=== PATIENT | male | born 1960 | race Caucasian/White ===

== ENCOUNTER 2017-03-05 10:15 | Emergency (ER) | payer BC ==
[2017-03-05 10:19] VITALS: BP 146/70
== END 2017-03-05 10:23 | disposition left against medical advice (07) ==
LOC: ED 10:15
DX: R09.89 Other specified symptoms and signs involving the circulatory and respiratory systems (principal); Z53.21 Procedure and treatment not carried out due to patient leaving prior to being seen by health care provider

== ENCOUNTER 2017-07-18 16:46 | Emergency (ER) | payer BC ==
[2017-07-18 17:01] VITALS: BP 117/76
--- NOTE | 2017-07-18 17:22 | UC ---
Skin Complaint HPI - HPI Summary HPI Summary: patient had 2 ticks attached to him for at least 24 hours---unsure of the exact time of attachment - History of Current Complaint Chief Complaint: UCGeneralIllness Time Seen by Provider: 07/18/17 17:22 Stated Complaint: TICK BITES Hx Obtained From: Patient - O Onset/Duration: Sudden Onset, Lasting Hours - + hours has removed earlier today26 Current Severity: None Pain Intensity: 0 Pain Scale Used: 0-10 Numeric Location: Discrete Aggravating Factor(s): Nothing Alleviating Factor(s): Nothing Associated Signs & Symptoms: Positive: Negative Related History: Possible Reaction to: Insect - Allergy/Home Medications Allergies/Adverse Reactions: Allergies Allergy/AdvReac Type Severity Reaction Status Date / Time No Known Allergies Allergy Verified 07/18/17 17:01 Home Medications: Home Medications Omeprazole 1 cap PO DAILY 07/18/17 [History Confirmed 07/18/17] Review of Systems Constitutional: Negative Skin: Negative, Other - 2 small ticks removed by patient intact prior to arrival 1 on abdomen and one on penis Eyes: Negative ENT: Negative Respiratory: Negative Cardiovascular: Negative Gastrointestinal: Negative Genitourinary: Negative Motor: Negative Neurovascular: Negative Musculoskeletal: Negative Neurological: Negative Psychological: Negative Is Patient Immunocompromised?: No All Other Systems Reviewed And Are Negative: Yes PMH/Surg Hx/FS Hx/Imm Hx Previously Healthy: Yes - Surgical History Surgical History: None - Family History Known Family History: Negative: Cardiac Disease, Hypertension, Diabetes - Social History Occupation: Employed Full-time Lives: With Family Alcohol Use: None Substance Use Type: None Smoking Status (MU): Never Smoked Tobacco Physical Exam Triage Information Reviewed: Yes Appearance: Well-Appearing, No Pain Distress, Well-Nourished Vital Signs: Initial Vital Signs Temp 98.4 F 07/18/17 16:57 Pulse 83 07/18/17 16:57 Resp 14 07/18/17 16:57 BP 117/76 07/18/17 16:57 Pulse Ox 98 07/18/17 16:57 Vital Signs Reviewed: Yes Eye Exam: Normal Eyes: Positive: Conjunctiva Clear ENT Exam: Normal ENT: Positive: Normal ENT inspection, Hearing grossly normal. Negative: Trismus , Muffled voice, Hoarse voice, Dental tenderness, Sinus tenderness Dental Exam: Normal Neck exam: Normal Neck: Positive: Supple, Nontender, No Lymphadenopathy Respiratory Exam: Normal Respiratory: Positive: Chest non-tender, No respiratory distress, No accessory muscle use Cardiovascular Exam: Normal Cardiovascular: Positive: RRR, Pulses Normal, Brisk Capillary Refill Musculoskeletal Exam: Normal Neurological Exam: Normal Neurological: Positive: Alert, Muscle Tone Normal Psychological Exam: Normal Skin Exam: Normal Course/Dx - Course Course Of Treatment: Soap and water wash, 200 mg doxycycline 1 now follow with PCP for any signs or symptoms of Lyme. Education regarding Lyme infection provided - Diagnoses Provider Diagnoses: tick exposure with Lyme PEP Discharge - Sign-Out/Discharge Documenting (check all that apply): Discharge/Admit/Transfer - Discharge Plan Condition: Stable Disposition: HOME Patient Education Materials: Tick Bite (ED) Referrals: Aditya Donis MD [Primary Care Provider] - If Needed - Billing Disposition and Condition Condition: STABLE Disposition: HOME
[2017-07-18] MEDS ORDERED: DOXYcycline CAP(*) 100 MG PO ONE (17:33)
== END 2017-07-18 17:49 | disposition home or self-care (01) ==
LOC: UCEAST 16:46
DX: S30.861A Insect bite (nonvenomous) of abdominal wall, initial encounter (principal); S30.862A Insect bite (nonvenomous) of penis, initial encounter; W57.XXXA Bitten or stung by nonvenomous insect and other nonvenomous arthropods, initial encounter; Y93.9 Activity, unspecified; Y92.9 Unspecified place or not applicable
CPT/HCPCS: 99212; A9270-GY; G0463

== ENCOUNTER → 2018-02-09 16:59 | Emergency (ER) | payer BC ==
[2018-02-09 17:12] VITALS: BP 133/85
== END | disposition home or self-care (01) ==
LOC: ED 16:59
DX: T17.208A Unspecified foreign body in pharynx causing other injury, initial encounter (principal); X58.XXXA Exposure to other specified factors, initial encounter; Y92.9 Unspecified place or not applicable; Z53.21 Procedure and treatment not carried out due to patient leaving prior to being seen by health care provider
CPT/HCPCS: 99281

== ENCOUNTER 2018-08-06 18:26 | Emergency (ER) | payer BC ==
[2018-08-06 18:34] VITALS: BP 132/86
[2018-08-06] MEDS ORDERED: NS 0.9% 1000 ML** 1,000 ML IV ONE (18:44)
[2018-08-06] MEDS ORDERED: Ondansetron INJ* 2 MG/ML VIAL IV ONE (18:44)
--- NOTE | 2018-08-06 18:49 | ED ---
Throat Pain/Nasal Congestion - HPI Summary HPI Summary: Pt is a 57 y/o M presenting to the ED with food stuck in his esophagus. He states this has happened before, and his physicians have been unable to figure out why it happens. He was eating a turkey sandwich when he realized some got stuck in his throat. He currently c/o difficulty swallowing. He denies SOB or pain with swallowing. He denies hx of DM or HTN. He occasionally drinks alcohol, but does not use drugs. NKDA. - History of Current Complaint Chief Complaint: EDForeignBodyEsophag Time Seen by Provider: 08/06/18 18:38 Hx Obtained From: Patient Onset/Duration: Sudden Onset, Lasting Hours, Still Present Severity: Moderate Cough: None Related History: Other (Noted In Comments) - hx of getting food stuck in esophagus - Allergies/Home Medications Allergies/Adverse Reactions: Allergies Allergy/AdvReac Type Severity Reaction Status Date / Time No Known Allergies Allergy Verified 07/18/17 17:01 PMH/Surg Hx/FS Hx/Imm Hx Previously Healthy: Yes Endocrine/Hematology History: Denies: Hx Diabetes Cardiovascular History: Denies: Hx Hypertension Musculoskeletal History: Denies: Hx Rheumatoid Arthritis, Hx Osteoporosis Infectious Disease History: No Infectious Disease History: Denies: Traveled Outside the [place] in Last 30 Days - Family History Known Family History: Negative: Cardiac Disease, Hypertension, Diabetes - Social History Alcohol Use: None Hx Substance Use: No Substance Use Type: Reports: None Hx Tobacco Use: No Smoking Status (MU): Never Smoked Tobacco Review of Systems Positive: Other - difficulty swallowing, but no pain with swallowing Negative: Shortness Of Breath All Other Systems Reviewed And Are Negative: Yes Physical Exam - Summary Physical Exam Summary: GENERAL: Patient is a well-developed and nourished M who is lying comfortable in the stretcher. Patient is not in any acute respiratory distress. HEAD AND FACE: Normocephalic EYES: PERRLA, EOMI x 2. EARS: Hearing grossly intact. MOUTH: Oropharynx within normal limits. NECK: Supple, trachea is midline, no adenopathy, no JVD, no carotid bruit. CHEST: Symmetric, no tenderness at palpation LUNGS: Clear to auscultation bilaterally. No wheezing or crackles. CVS: Regular rate and rhythm, S1 and S2 present, no murmurs or gallops appreciated. ABDOMEN: Soft, non-tender. Bowel sounds are normal. No abnormal abdominal pulsations. EXTREMITIES: Full ROM in all major joints, no edema, no cyanosis or clubbing. NEURO: Alert and oriented x 3. No acute neurological deficits. Speech is normal and follows commands. SKIN: Dry and warm Triage Information Reviewed: Yes Vital Signs On Initial Exam: Initial Vitals Temp Pulse Resp BP Pulse Ox 97.1 F 94 16 132/86 96 08/06/18 18:32 08/06/18 18:32 08/06/18 18:32 08/06/18 18:32 08/06/18 18:32 Vital Signs Reviewed: Yes Diagnostics - Vital Signs Vital Signs Temp Pulse Resp BP Pulse Ox 08/06/18 18:32 97.1 F 94 16 132/86 96 - Laboratory Lab Statement: Any lab studies that have been ordered have been reviewed, and results considered in the medical decision making process. Re-Evaluation - Re-Evaluation 1st re-eval Re-Evaluation Time: 19:04 Change: Improved Comment: Pt states he was able to cough up some of the food thaty was stuck in his throat. He was also able to drink some water, and he would like to go home. EENT Course/Dx - Course Course Of Treatment: Pt is a 57 y/o M presenting to the ED with food stuck in his esophagus. He currently c/o difficulty swallowing. He denies SOB or pain with swallowing. He denies hx of DM or HTN. He occasionally drinks alcohol, but does not use drugs. NKDA. The pt's physical exam is normal. I called Dr. Davis at 1845 who will be coming to see the patient. Pt states he was able to vomit some of the food that was stuck in his throat. He was also able to drink two cups of water, and he would like to go home. I called Dr. Davis to let him know the pt's sx resolved and he didn't have to come to see the patient. Pt is hemodynamically stable and safe for discharge. He will be d/c' ed with a dx of food impaction, resolved. - Diagnoses Provider Diagnoses: Esophageal obstruction due to food impaction, Problem resolved Discharge - Sign-Out/Discharge Documenting (check all that apply): Patient Departure Patient Received Moderate/Deep Sedation with Procedure: No - Discharge Plan Condition: Stable Disposition: HOME Referrals: Aditya Donis MD [Primary Care Provider] - Additional Instructions: Please follow up with your primary care physician within the next 1-3 days. Return to the ED with any new or worsening symptoms. - Billing Disposition and Condition Condition: STABLE Disposition: Home - Attestation Statements Document Initiated by Jeison: Yes Documenting Scribe: Aminah Knight Provider For Whom Jeison is Documenting (Include Credential): Shahla Ceja MD. Scribe Attestation: IAminah, scribed for Shahla Ceja MD. on 08/06/18 at 2110. Scribe Documentation Reviewed: Yes Provider Attestation: The documentation as recorded by the Aminah moore accurately reflects the service I personally performed and the decisions made by me, Kavon Ceja MD. Status of Scribowen Document: Viewed Consult Consult: 1844 - I called Dr. Davis who will be coming to see the patient. 1708 - I called Dr. Davis to let him know the pt's issue had resolved and he didn't need to come see the patient.
--- OUTSIDE RECORDS SUMMARY | 2018-08-06 18:59 | XMS REPORT | Continuity of Care Document ---
:1960 External Reference #:[id number] Author Name Aditya Donis M.D. Address [address] [place] [address] Care Team Providers Name Role Phone Aditya Donis M.D. Care Team Information Personal Lines Appraiser Unavailable Payers Date Identification Numbers Payment Provider Subscriber Policy Number: [id number] [employer] [facility] Tim Motley Group Number: [id number] [address] [address] Group Name: KENDELL Rhodes [id number] PayID: [id number] Family History Date Family Member(s) Observation Comments Father Hypercholesterolemia Father Phlebitis unsure details. Took blood thinners. Father Cancer, Lung Dad 18 months ago from lung CA Mother Non Contributory Mother "growth in her throat" not thought to be cancer. First Son Autism First Daughter Neurofibromatosis Siblings 7 First Brother Colon polyps First Sister Graves Disease Second Sister Fibromyalgia Third Sister Arthritis : (age Paternal Grandfather due to DE 60 Years) : (age Paternal Grandmother due to Natural Causes 90 Years) Maternal Grandfather due to Unknown Causes () - in his 90's : (age Maternal Grandmother due to Hip Fracture 95 Years) Maternal Uncles Cancer, Colon Social History Type Date Description Comments Sex Unknown Marital Status Lives With Spouse Lives With Son Lives With Daughter Occupation Works from home. 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 Tobacco Use Start: Unknown Never Smoked Cigarettes ETOH Use Drinks occasionally 1-2 drinks a month. Tobacco Use Start: Unknown Patient has never smoked Exercise Type/Frequency Exercises sporadically golfs 1-2 days a week. Allergies, Adverse Reactions, Alerts Description No Known Drug Allergies Medications Active Medications SIG Qnty Indications Ordering Provider Date Ibuprofen take1 tablet qid 60tabs 840.4 Courtney Diggs, 11/18/2010 600mg Tablets prn pain, take ROPEMAN-C with food History Medications Escitalopram Oxalate 1 po qd 30tabs 300.4 Aditya Donis, 11/27/2011 - 10mg M.DBong 01/28/2017 Tablets Meloxicam one po up to bid 60tabs 724.5 Charlette Camacho 10/25/2011 - 7.5mg Tablets prn joint pain Meng Blanton 01/28/2017 Cyclobenzaprine HCL take 1 tablet by 330tabs 724.5 Charlette Camacho 2011 - 10mg mouth three Meng Blanton 01/28/2017 Tablets times a day if needed muscle spasm or back pain Triamcinolone Acetonide apply to 15gm [facility] RBong 01/29/2007 - affected area Storm, ROPEMAN-C 08/17/2009 0.1% Cream bid Zyrtec 1 PO qd 30units Aditya Donis, 02/12/2006 - 10mg Chewtabs Meng 08/17/2009 Flexeril 1 PO tid 10tabs Aditya Donis 11/06/2004 - 10mg Tablets Aurora.DBong 02/04/2005 Tobradex ii gtts OU qid 6cc 372.00 Charlette Camacho 08/05/2002 - Meng Blanton 12/05/2003 Penicillin VK one bid x 10days 20tabs Courtney 09/08/2001 - 500mg Tablets Meng Rebolledo 12/05/2003 Medications Administered in Office Medication SIG Qnty Indications Ordering Provider Date Injection, Depo-Medrol 40MG Aditya Donis M.D. 11/20/2004 Injection Immunizations CPT Code Status Date Vaccine Lot # [id number] Given 12/06/2003 DT (Adult) Vital Signs Date Vital Result Comment 01/28/2017 10:32am Weight 204.00 lb Weight 92.534 kg BP Systolic 120 mmHg BP Diastolic 70 mmHg Heart Rate 60 /min Body Temperature 96.5 F Respiratory Rate 16 /min O2 % BldC Oximetry 97 % 12/19/2011 11:48am Weight 197.00 lb Weight 89.359 kg BP Systolic 124 mmHg BP Diastolic 82 mmHg Heart Rate 48 /min 11/27/2011 11:43am Weight 196.00 lb Weight 88.906 kg BP Systolic 130 mmHg BP Diastolic 66 mmHg Heart Rate 76 /min 10/25/2011 11:13am Weight 197.00 lb Weight 89.359 kg BP Systolic 104 mmHg BP Diastolic 64 mmHg Heart Rate 76 /min Body Temperature 96.3 F 11/18/2010 9:38am Weight 198.00 lb Weight 89.813 kg BP Systolic 120 mmHg BP Diastolic 78 mmHg Heart Rate 72 /min Body Temperature 96.3 F 08/09/2010 11:02am Weight 197.00 lb Weight 89.359 kg BP Systolic 116 mmHg BP Diastolic 70 mmHg Heart Rate 60 /min Body Temperature 97.1 F 08/17/2009 9:13am Weight 187.00 lb Weight 84.823 kg BP Systolic 120 mmHg BP Diastolic 72 mmHg Heart Rate 80 /min Height 75.25 inches 6'3.25" BMI (Body Mass Index) 23.2 kg/m2 09/20/2008 11:10am Weight 203.00 lb Weight 92.081 kg BP Systolic 122 mmHg BP Diastolic 70 mmHg Heart Rate 72 /min 01/29/2007 4:32pm Weight 205.00 lb Weight 92.988 kg BP Systolic 124 mmHg BP Diastolic 62 mmHg Heart Rate 49 /min Height 75 inches 6'3" BMI (Body Mass Index) 25.6 kg/m2 02/12/2006 11:39am Weight 198.00 lb Weight 89.813 kg BP Systolic 112 mmHg BP Diastolic 70 mmHg Heart Rate 76 /min Respiratory Rate 18 /min Height 75 inches 6'3" BMI (Body Mass Index) 24.7 kg/m2 09/09/2005 11:21am Weight 195.00 lb Weight 88.452 kg BP Systolic 102 mmHg BP Diastolic 60 mmHg Heart Rate 64 /min Height 75 inches 6'3" BMI (Body Mass Index) 24.4 kg/m2 08/27/2005 10:26am Weight 196.00 lb Weight 88.906 kg BP Systolic 120 mmHg BP Diastolic 60 mmHg Body Temperature 98.2 F Height 75 inches 6'3" BMI (Body Mass Index) 24.5 kg/m2 11/20/2004 10:09am Weight 192.00 lb Weight 87.091 kg BP Systolic 120 mmHg BP Diastolic 62 mmHg Height 75 inches 6'3" BMI (Body Mass Index) 24.0 kg/m2 11/06/2004 11:13am Weight 192.00 lb Weight 87.091 kg BP Systolic 104 mmHg BP Diastolic 62 mmHg Body Temperature 98.4 F Height 75 inches 6'3" BMI (Body Mass Index) 24.0 kg/m2 12/28/2003 3:10pm BP Systolic 100 mmHg BP Diastolic 68 mmHg Body Temperature 99.1 F Height 75 inches 6'3" 12/06/2003 8:45am Weight 192.00 lb Weight 87.091 kg BP Systolic 110 mmHg BP Diastolic 70 mmHg Heart Rate 50 /min Respiratory Rate 18 /min Height 75 inches 6'3" BMI (Body Mass Index) 24.0 kg/m2 11/15/2003 11:09am Weight 189.00 lb Weight 85.730 kg BP Systolic 112 mmHg BP Diastolic 60 mmHg 08/05/2002 10:21am Weight 209.00 lb Weight 94.802 kg BP Systolic 130 mmHg BP Diastolic 80 mmHg Heart Rate 66 /min Body Temperature 98.6 F 09/08/2001 12:21pm Weight 203.00 lb BP Systolic 100 mmHg BP Diastolic 60 mmHg Heart Rate 68 /min Body Temperature 98.7 F Respiratory Rate 18 /min Height 75 inches BMI (Body Mass Index) 25.4 kg/m2 Results Test Date Facility Test Result H/L Range Note Laboratory test 04/09/2016 [facility] Surgical SEE RESULT 1, 2 finding [phone] Interface Order BELOW Laboratory test 02/04/2011 [facility] Magnesium 2.1 mg/dL 1.7-2.6 finding [phone] CPK (Creatine Kinase) 111 U/L 0-200 Troponin-I 0.07 NG/ML High 0-0.06 3 Comp Metabolic Panel 02/04/2011 [facility] Sodium 138 mmol/L 135-145 [phone] Potassium 3.8 mmol/L 3.5-5.0 Chloride 104 mmol/L 101-111 Co2 (Carbon Dioxide) 28.0 mmol/L 22-32 Anion Gap 6.0 mmol/L 2-11 4 Glucose 96 mg/dL 70-100 BUN 14 mg/dL 6-24 Creatinine 0.9 mg/dL 0.50-1.40 One Over Creatinine 1.11 BUN/Creatinine Ratio 15.6 8-20 Calcium 8.9 mg/dL 8.1-9.9 Total Protein 7.0 GM/DL 6.2-8.1 Albumin 3.9 GM/DL 3.6-5.4 Globulin 3.1 GM/DL 2-4 Albumin/Globulin Ratio 1.3 1-3 Bilirubin Total 0.8 mg/dL 0.4-1.5 5 Alkaline Phosphatase 72 U/L 39-117 Alt (SGPT) 21 U/L 17-63 Ast (Sgot) 20 U/L 12-42 eGFR Non- 89.0 > 60 eGFR 114.4 > 60 6 Surgical 12/04/2009 [facility] Surgical --- 7 Pathology [phone] Pathology <SEE NOTE> Lipid Profile 08/22/2009 [facility] Triglyceride 154 mg/dL 40- (Trig/Chol/HD [phone] 200 L) Cholesterol 236 mg/dL High Less Than 200 8 High Density Lipoprotein 32 mg/dL Low 40-60 9 Cholesterol/HDL Ratio 7.38 AVERAGE High 1-4.97 Low Density Lipoprotein 173 mg/dL High Less Than 100 10 Laboratory test 08/22/2009 [facility] PSA Screening 0.68 NG/ML 0-4 finding [phone] Urine DIP 08/17/2009 [facility] House Lab Leukocytes NEG Neg (607)- - Urine Nitrites NEG Neg Urine pH 5 5-6 Total Protein, Urine NEG Neg Urine Glucose NORM Norm Urine Ketones NEG Neg Urobilinogen NORM Norm Urine Bilirubin NEG Neg Urine Blood NEG Neg Specific [place] NA Low 1.01-1.02 Comp Metabolic 08/27/2005 [facility] One Over Creatinine 0.76 Panel [phone] Anion Gap 8.0 mmol/L 2-11 11 Albumin/Globulin Ratio 2.0 1-3 Albumin 4.1 GM/DL 3.6-5.4 Alkaline Phosphatase 66 U/L 39-117 Alt (SGPT) 24 U/L 17-63 Ast (Sgot) 30 U/L 12-42 BUN 13 mg/dL 6-24 Calcium 9.1 mg/dL 8.7-10.2 Chloride 104 mmol/L 101-111 Co2 (Carbon Dioxide) 29.0 mmol/L 22-32 Globulin 2.1 GM/DL 2-4 Glucose 94 mg/dL 70-105 Potassium 4.0 mmol/L 3.5-5.0 Sodium 141 mmol/L 135-145 Bilirubin Total 0.8 mg/dL 0.4-1.5 Total Protein 6.2 GM/DL 6.2-8.1 BUN/Creatinine Ratio 10.0 8-20 Creatinine 1.3 mg/dL 0.5-1.4 CBC With 08/27/2005 [facility] White Blood 6.0 CUMM 4.8-10.8 Electronic Diff [phone] Count Abs Basophils 0.1 0-0.2 Abs Eosinophils 0.2 0-0.6 Absolute Neutrophil Count 3.5 1.5-7.7 Abs Lymphs 1.9 1.0-4.8 Abs Mononuclear 0.4 0-0.8 Basophil % 0.9 % 0-2 Hematocrit 43 % 42-52 Hemoglobin 14.8 g/dL 14.0-18.0 Eosinophil % 3.3 % 0-6 Gran % 58.1 % 38-83 Lymph % 31.0 % 20-45 Mean Corpuscular HGB Cone 34 g/dL 32-36 Mean Corpuscular Hemoglob 30 pg 27-31 Mean Corpuscular Volume 87 um3 80-94 Mean Platelet Volume 8.5 um3 7.4-10.4 Mononuclear % 6.7 % 1-9 Platelet Count 189 CUMM 150-450 Red Cell Count 4.95 CUMM 4.6-6.2 Redcell Distribution WDTH 13 % 10.5-15 Laboratory test 08/27/2005 [facility] TSH 0.63 MIU/ ML 0.34-5.60 finding [phone] Testosterone Free 08/27/2005 [facility] Testoster 1.12 ng/dL 0.95-4.30 12 & Total [phone] one,Free Testosterone % Free 0.20 % Low 0.33-0.48 13 Testosterone 570 ng/dL [phone] Laboratory test 08/27/2005 [facility] Vitamin B12 614 pg/mL 180-914 finding [phone] Folic Acid 17.8 NG/ML 2.2-18.3 Statin 12/06/2003 [facility] Ast (Sgot) 28 U/L 12- 42 [phone] Alt (SGPT) 31 U/L 17-63 Lipid Profile 12/06/2003 [facility] Cholesterol/HDL 4.13 1-4.97 (Trig/Chol/HDL) [phone] Ratio AVERAGE Cholesterol 186 mg/dL Less Than 200 14 Triglyceride 81 mg/dL 40-200 High Density Lipoprotein 45 mg/dL 40-60 Low Density Lipoprotein 125 mg/dL High Less Than 100 15 Urine DIP 12/06/2003 In House Lab Leukocytes NEG Neg (607)- - Urine Nitrites NEG Neg Urine pH 5 5-6 Total Protein, Urine NL Neg Urine Glucose NL Norm Urine Ketones NL Neg Urobolinogen N/A Norm Urine Bilirubin N/A Neg Urine Blood NL Neg Specific [place] N/A Low 1.01-1.02 Laboratory test finding 09/08/2001 In House Lab Strep Screen POS Neg (607)- - 1 [id number] 2 SEE RESULT BELOW Name: TIM MOTLEY : [address]: Keith Chaparro MD Acct: [id number] Unit: [id number] AGE: 55 Location: [facility] Re04/09/16 SEX: M Status: DEP REF SPEC: [id number] ESSENCE: 04/09/16- SUBM DR: Keith Chaparro MD REQ: [id number] RECD: 04/09/16 STATUS: MAYDA JOE DR: Aditya Donis MD _ ORDERED: ACTIN STAIN, LEVEL IV, [id number], [id number] COMMENTS: [id number] FINAL DIAGNOSIS Colon, hepatic flexure, biopsy: -- Submucosal leiomyoma; see comment. COMMENT: Immunohistochemical stains, with appropriately reacting controls, were performed with the following results: S100 negative CD117 negative Smooth muscle actin positive The immunoprofile support the diagnosis. Dr. Orlando reviewed this case in intradepartmental consultation and agrees with the diagnosis. CLINICAL HISTORY Usual bowel habit - every day, rare skips, no laxatives; emergency room - food stuck in November. HF bypass POST-OPERATIVE DIAGNOSIS Prominent haustra, good cleanout. Conclusions/Plan: Sigmoid diverticulosis, normal colon and terminal ileum otherwise; 10 years GROSS DESCRIPTION The specimen is received in formalin labeled, Biopsy Hepatic Flexure Nodule, and consists of a 0.5 by up to 0.2 x 0.1 cm almonte-pink irregular to polypoid soft tissue fragment, which is submitted entirely in one cassette. Signed (signature on file) Aliyah Chaparro MD 12/16 1119 END OF REPORT * ML=Testing performed at Main Lab DEPARTMENT OF PATHOLOGY, [address] [place] [address] Angel Orlando M.D. Director [facility] # [id number] 3 New Reference Range and Interpretation effective 12/03/2001 TnI (ng/ml) INTERPRETATION Less Than 0.06 ng/mL NOT SUPPORTIVE OF DIAGNOSIS OF DE 0.06 - 0.50 ng/ml INDETERMINATE: SUGGEST SERIAL STUDIES IF CLINICALLY INDICATED. Greater than 0.5 ng/mL CONSISTENT WITH DIAGNOSIS OF DE . 4 Anion gap measurement may be of limited value in the presence of any alkalosis, especially in a combined acid base disorder. . 5 A metabolite of Naproxen, O-desmethylnaproxen, has been shown to interfere with the Jendrassik-Anh method for measuring total bilirubin. Samples from patients who have taken Naproxen have shown spurious elevation in total bilirubin levels. 6 Because ethnic data is not always readily available, this report includes an eGFR for both -Americans and non- Americans. The National Kidney Disease Education Program (NKDEP) does not endorse the use of the MDRD equation for patients that are not between the ages of 18 and 70, are , have extremes of body size, muscle mass, or nutritional status, or are non- or non-. According to the National Kidney Foundation, irrespective of diagnosis, the stage of the disease is based on the level of kidney function: Stage Description GFR(mL/min/1.73 m(2)) 1 Kidney damage with normal or decreased GFR 90 2 Kidney damage with mild decrease in GFR 60-89 3 Moderate decrease in GFR 30-59 4 Severe decrease in GFR 15-29 5 Kidney failure <15 (or dialysis) 7 --- RUN DATE: 12/05/09 [facility] NMI LIVE PAGE 1 RUN TIME: 1449 Specimen Inquiry RUN USER: INTERFACE -- [id number] Status: REG REF Re12/04/09 Age/Sex: 49/M Unit#: [id number] Location: [facility]. : 58 -- Specimen: [id number] SOUT Spec Date: 12/04/[address]: Keith mora MD Spec Type: SURGICAL P Received: 12/04/09-1031 Copies to: Aditya Donis MD SPECIMEN 1) BIOPSY HEPATIC FLEXURE NODULE 2) CECAL CAP POLYP HISTORY POST-OP DIAGNOSIS: Colonoscopy to cecum. Colon polyps right side. Poor p reparation, no seeds. CLINICAL INFORMATION: Family history of polyps (brother). Screening GROSS DESCRIPTION 1) The specimen is received in formalin labelled Tim Motley, Hepatic Flexure Nodule, and consists of three fragments of almonte-brown tissue measuring in aggregate 0.5 x 0.3 x 0.2 cm. Submitted entirely, one cassette labelled 1. 2) The specimen is received in formalin labelled Tim Motley, Cecal Cap Polyp, and consists of one fragment of yellow tissue measuring 0.3 x 0.3 x 0.2 cm. Submitted entirely, one cassette labelled 2. DIAGNOSIS 1) Hepatic flexure, nodule, biopsy: Hyperplastic polyp. 2) Cecal cap, polyp, biopsy: Hyperplastic polyp. Signed Electronically by: MAULIK STEPHENS 12/05/09 1449 -- -- DEPARTMENT OF PATHOLOGY, [address] [place] [address] [facility] Permit #[id number] Angel Orlando M.D. Director Maulik Stephens M.D. Senior Property Manager Dir daniel -- 8 CHOLESTEROL INTERPRETATION: Desirable: Less than 200 MG/DL Borderline-High Risk: 200-239 MG/DL High-Risk: 240 MG/DL and over 9 HDL INTERPRETATION: Undesirable: High Risk: Less than 40 MG/DL Desirable: Low Risk: Greater than 60 MG/DL 10 LDL INTERPRETATION: Low Risk Optimal Level: LDL Less than 100 MG/DL Near or Above Optimal: LDL 100-129 MG/DL Borderline High Risk: LDL 130-159 MG/DL High Risk: LDL 160-189 MG/DL Very High Risk: LDL Greater than 189 MG/DL 11 Anion gap measurement may be of limited value in the presence of any alkalosis, especially in a combined acid base disorder. . 12 REFERENCE RANGE FOR TESTOSTERONE FREE MALES: 20-49 YRS . . . . . 0.95-4.30 NG/DL > OR=50 YRS . . . 0.80-3.50 NG/DL FEMALES: OVULATING . . . . UP TO 0.38 NG/DL POSTMENOPAUSAL . . UP TO 0.18 NG/DL 13 THE PERFORMANCE CHARACTERISTICS OF ONE OR MORE OF THE ASSAYS IN THIS PANEL WERE ESTABLISHED THROUGH VALIDATION BY [employer], AND NO APPROVAL IS REQUIRED BY THE U.S. FOOD AND DRUG ADMINISTRATION (FDA). THESE TESTS ARE USED FOR CLINICAL PURPOSES. THEY SHOULD NOT BE REGARDED INVESTIGATIONAL OR FOR RESEARCH. [employer] IS REGULATED UNDER THE CLINICAL LABORATORY IMPROVEMENT AMENDMENTS OF 1988 ("CLIA") QUALIFIED TO PERFORM HIGH COMPLEXITY CLINICAL TESTING. TEST PERFORMED BY: [employer] [address] [place] [address] 14 Classification: Desirable . 15 CALCULATED LDL APPROXIMATES THE VALUE OF A DIRECT LDL MEASUREMENT. Classification: Near or above optimal . Procedures Date Code Description Status 04/30/2016 33020159 Colonoscopy Completed 11/20/2004 Inj Of Tendon Sheath,Or Ligament, Aponeurosis Completed 12/13/2003 16771 Excision Lesion,Trunk,Arm 2-3 CM Completed Encounters Type Date Location Provider Dx Diagnosis Office Visit 01/28/2017 Main Office Aníbal Arenas, S46.301A Unsp injury of 10:30a MD zuniga/davidson/tend triceps, right arm, init R06.83 Snoring Office Visit 12/19/2011 11:30a Main Office Aditya Donis, 300.4 Dysthymic Disorder M.D. Office Visit 11/27/2011 11:15a Main Office Aditya Donis 300.4 Dysthymic Disorder M.D. 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 Medical Routine AT Health Care Facility 272.0 Hypercholesterolemia Pure Office Visit 09/20/2008 11:00a Main Office Meredith Mcguire 959.5 Injury Finger Dee Dee JarquinC. Other & Unspec Office Visit 01/29/2007 4:15p Main Office Jovanni Barger, 706.3 Seborrhea ROPEMAN-C Office Visit 02/12/2006 11:30a Main Office Aditya Donis M.D. 477.9 Rhinitis Allergic Cause Unspec Office Visit 09/09/2005 11:00a Main Office Anjum Nelson, 780.79 Malaise And M.D. Fatigue Other Office Visit 08/27/2005 10:15a Main Office Anjum BernardoBong Omar, 780.79 Malaise And M.D. Fatigue Other Office Visit 11/06/2004 11:00a Main Office Aditya Donis M.D. 840.4 Sprains & Strains Rotator Cuff (Capsule) 723.1 Cervicalgia 780.79 Malaise And Fatigue Other Office Visit 12/28/2003 2:45p Main Office Aditya Donis, 448.1 Nevus Non- Neoplastic M.D. 272.0 Hypercholesterolemia Pure Office Visit 12/06/2003 8:45a Main Office dAitya Donis M.D. V70.0 Examination General Medical Routine AT Health Care Facility 272.0 Hypercholesterolemia Pure Office Visit 11/15/2003 Main Office Aditya Donis 272.0 Hypercholesterolemia Pure 10:45a Meng V65.40 Counseling Other Unspec NOS Office Visit 08/05/2002 10:00a Main Office Charlette Camacho 372.00 Conjunctivitis Acute Meng Blanton Unspec Office Visit 09/08/2001 12:00p Main Office Courtney Rebolledo, 462 Pharyngitis Acute Meng Plan of Treatment 01/28/2017 - Aníbal Arenas, MDS46.301A Unspecified injury of muscle, fascia and tendon of triceps, right arm, initial encounterComments:Mild pain at triceps insertion. Primarily worried to know this is not the beginning of some terriblething. Seems reassured, it does not seem worth doing PT to him.I think a lot of the reason for his visit is to come see me before he brings his son by.R06.83 SnoringComments:Noisy sleeper but well rested. He will talk to his dentist about trying an appliance.
== END 2018-08-06 19:18 | disposition home or self-care (01) ==
LOC: ED 18:26
DX: T18.120A Food in esophagus causing compression of trachea, initial encounter (principal); K22.2 Esophageal obstruction
CPT/HCPCS: 99282